=== PATIENT | female | born 1980 | race Caucasian/White ===

== ENCOUNTER 2025-01-31 16:54 | Emergency (ER) | payer BC, SELFPAY ==
--- NOTE | ~2025-01-31 | XR_ITS ---
EXAM: XR ankle LT min 3V DATE: 01/31/2025 17:23 HISTORY: GEN PAIN AND SWELLING, NKI . COMPARISON: None available. FINDINGS: Normal mineralization. No fracture or dislocation. No lytic or blastic lesion. Joint space s are maintained. Mild Achilles enthesopathy. Prominent os trigonum. Small ankle joint effusion No er osion or periosteal change. Soft tissue swelling about the ankle. IMPRESSION: No acute osseous finding in the left ankle. Prominent os trigonum which can be a source o f chronic posterior ankle pain in some patients. Ankle soft tissue swelling and small ankle joint eff usion. Reviewed, dictated and finalized at location K. IMPRESSION: No acute osseous finding in the left ankle. Prominent os trigonum w hich can be a source of chronic posterior ankle pain in some patients. Ankle so ft tissue swelling and small ankle joint effusion.
--- OUTSIDE RECORDS SUMMARY | 2025-01-31 16:57 | XMS_ITS | Clinical Summary ---
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 There are postsurgical changes of combined anterior and posterior instrumented fusion at L5-S1. The instrumentation is intact. Interval removal of posterior surgical drain. No lumbar compression fracture. There is mild multilevel degenerative disc disease and facet arthropathy at the nonfused levels most pronounced at L3-L4. Procedure Note Christine Chan MD - 12/09/2024 EXAMINATION: XR SPINE LUMBAR 2 OR 3 VIEWS HISTORY: Lumbar pain FINDINGS: 2 radiographs of the lumbar spine are submitted. Comparison is made to an examination dated 05/07/2025. 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 There are postsurgical changes of combined anterior and posterior instrumented fusion at L5-S1. The instrumentation is intact. Interval removal of posterior surgical drain. No lumbar compression fracture. There is mild multilevel degenerative disc disease and facet arthropathy at the nonfused levels most pronounced at L3-L4. IMPRESSION: Unchanged L5-S1 combined anterior and posterior instrumented fusion. Dictated by: Lake Ladd MD The radiology attending physician has personally reviewed this study, and had reviewed and/or edited this written report and agrees with it. Electronically signed by: Christine Chan MD us Valentino Gomez MD IMG XR PROCEDURES Final Re sult * Hepatitis C antibody Blood (04/05/2024 10:20 AM CDT) Hep C Ab Nonreactive Nonreactive Comment: Interpretive Data Nonreactive: Antibodies to HCV not detected. Does NOT exclude the possibility of recent exposure to HCV. Equivocal: Equivocal for HCV antibodies. Supplemental molecular testing will be automatically performed to determine infection status in accordance with current CDC screening recommendations. Reactive: Positive for HCV antibodies. This may represent current or past HCV infection. Supplemental molecular testing will be automatically performed to determine current infection status in accordance with current CDC screening recommendations. Interpretive data was last revised on 2019. Testing performed by: [facility], [address] [place] [address], [place]., [address] Blood 04/05/2024 10:2 0 AM CDT 04/05/2024 4:13 PM CDT us Jodi Comer NP LAB MICROBIOLOGY - GENE RAL ORDERABLES Final Result [place] [facility] of [facility] [place], [place] [id number] from Last 3 Months or Most Recently Relevant to Health Maintenance Insurance BLUE ACCESS OOS ANTHEM ACCESS ANTHEM ACCESS Member Subscriber Plan / Payer (Ef fective 2019-Present) Name:Rika Clay Relation to Subscriber:Spouse Name:Raffy Clay Date of :1961 (Home) Address: [address] [place] [id number] Payer ID:[id number] (NAIC) Type:BC ALLIANCE Address: [address] Advance Directives For more information, please contact: [phone] * Full Code (Latest Code Status on File) Date Activated Date Inactivated Comments 10/28/2024 6:53 AM 10/28/2024 8:33 PM Care Teams Green 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
--- OUTSIDE RECORDS SUMMARY | 2025-01-31 16:57 | XMS_ITS ---
Author Organization Unknown ENCOUNTERS Encounter Performer Location Date Diagnosis Diagnosis Status Outpatient DEBBIE PATEL [address] [address] [id number] Inpatient DEBBIE PATEL [address] [address] [id number] [facility] Emergency [address] [address] [id number] [facility] Emergency DIETER [address] [address] [id number] RTN *Note: Encounters from your own facility or health system may be excluded. Allergies, Adverse Reactions, Alerts Allergen Type Severity Identification Date Medications Name Date Quantity Days Supplied GPI Number
[2025-01-31 17:04] VITALS: BP 109/66; PULSE 106; RESP 16; TEMP 36.4; O2SAT 98
--- NOTE | 2025-01-31 17:16 | ED.LOWEXIN ---
HPI - Extremity Injury (Lower) General Chief Complaint: Extremity Injury, Lower Stated Complaint: Left Ankle Pain and Swelling Time Seen by Provider: 01/31/25 16:57 Source: patient and family (daughters ) Mode of arrival: ambulatory Limitations: no limitations History of Present Illness HPI Narrative: 44-year-old female presents to [facility] complaints of pain, swelling and warmth to lateral aspect of her left ankle since yesterday. Patient denies injury. Patient reports she has been taking leftover oxycodone from previous back surgery which is barely been helping with pain. Patient has been using crutches for ambulation. Patient reports that she previously fractured her right ankle years ago. Patient denies wounds, bruising, fever, body aches, chills, nausea vomiting or diarrhea. Relieving factors: rest Exacerbating factors: weight bearing and movement Related Data Home Medications ?Medication ?Instructions ?Recorded ?Confirmed ?Last Taken ?Type amitriptyline 25 mg tablet mg 01/31/25 Unknown History diazepam 5 mg tablet mg 01/31/25 Unknown History famotidine 40 mg tablet mg 01/31/25 Unknown History oxycodone 15 mg tablet mg 01/31/25 Unknown History Allergies Allergy/AdvReac Type Severity Reaction Status Date / Time acetaminophen Allergy Unknown Unknown Verified 01/31/25 16:58 PROPOXYPHENE NAPSYLATE Allergy Unknown Unknown Uncoded 01/31/25 16:58 Review of Systems Constitutional: Constitutional: Denies chills, Denies fatigue, Denies fever(s) and Denies weakness ENT: Denies dizziness, Denies nasal congestion and Denies sore throat Cardiovascular: Cardiovascular: Denies chest pain Respiratory: Respiratory: Denies cough, Denies dyspnea and Denies wheezing Gastrointestinal: Gastrointestinal: Denies diarrhea, Denies nausea and Denies vomiting Musculoskeletal: Musculoskeletal: Reports arthralgias and Reports joint swelling Comments: Pain, swelling and warmth to lateral aspect of left ankle Neurologic: Denies dizziness, Denies syncope, Denies headache(s) and Denies focal weakness PMFSH Comments At time of signature, I agree with nursing past medical, surgical, social and family history. There is no relevant family history pertinent to the presenting complaint. Exam Const: General: healthy appearing and no acute distress Nutritional Appearance: well nourished Orientation/consciousness: patient oriented x3 Limitations: no limitations Neck: Neck: normal visual inspection Resp: Effort & Inspection: normal respiratory effort and not labored Auscultation: clear to auscultation bilaterally, no crackles, no rales, no rhonchi and no wheezes Cardio: Rate: regular rate Rhythm: regular rhythm Heart sounds: no murmurs Skin: Other: Mild erythema and warmth noted to lateral aspect of left ankle Neuro: General: patient oriented x3 and moves all extremities Speech: normal speech Extrem: Other: Mild swelling, erythema and warmth noted to lateral aspect of left ankle. Pulses are within normal limits. Increased pain noted with range of motion of left foot. There are no wounds noted Psych: Affect: normal affect Attitude: cooperative Course Course Level of Care: Express Care Visit Vital Signs Vital signs: Vital Signs Temperature 36.4 C L 01/31/25 17:04 Pulse Rate 106 H 01/31/25 17:04 Respiratory Rate 16 01/31/25 17:04 Blood Pressure 109/66 01/31/25 17:04 Pulse Oximetry 98 01/31/25 17:04 Oxygen Delivery Room Air 01/31/25 17:04 Temperature 36.4 C L 01/31/25 17:04 Pulse Rate 106 H 01/31/25 17:04 Respiratory Rate 16 01/31/25 17:04 Blood Pressure 109/66 01/31/25 17:04 Pulse Oximetry 98 01/31/25 17:04 Oxygen Delivery Room Air 01/31/25 17:04 MDM - Extremity Injury (Lower) MDM Narrative Medical decision making narrative: Discussed x-ray results with patient. Discussed differential diagnosis of gout versus cellulitis versus strain. Patient agrees to alternate Motrin and Tylenol as needed. Instructed patient to only take oxycodone that she has at home for very severe pain. Will place patient on prophylactic antibiotic due to possible cellulitis. Instructed patient to follow-up with primary care provider on Sunday. Educated patient to proceed to the emergency room symptoms worsen Differential Diagnosis Differential diagnosis: Likely other (Gout, cellulitis, strain) Imaging Data Radiologist's impression: Ordering Physician: Kalpana Tadeo APRN Date of Service: 01/31/25 Procedure(s): XR ankle LT min 3V Accession Number(s): [id number] cc: Kalpana Tadeo APRN; UNKNOWN,DOCTOR~ EXAM: XR ankle LT min 3V DATE: 01/31/2025 17:23 HISTORY: GEN PAIN AND SWELLING, NKI . COMPARISON: None available. FINDINGS: Normal mineralization. No fracture or dislocation. No lytic or blastic lesion. Joint spaces are maintained. Mild Achilles enthesopathy. Prominent os trigonum. Small ankle joint effusion No erosion or periosteal change. Soft tissue swelling about the ankle. IMPRESSION: No acute osseous finding in the left ankle. Prominent os trigonum which can be a source of chronic posterior ankle pain in some patients. Ankle soft tissue swelling and small ankle joint effusion. Reviewed, dictated and finalized at location K. Please be advised this is a medical document. It is intended for [id number] communication. It is written in medical language and may contain unfamiliar abbreviations or verbiage. Medical documents are intended to carry relevant information, facts as evident, and the clinical opinion of the practitioner at the time of the encounter. This report may have been done utilizing a voice recognition system. Attempts have been made to correct errors. However, there may be uncorrected grammatical, spelling, and recognition errors present. The file time of this note does not necessarily represent the time of service. Dictated By: Cecil Metcalf MD 01/31/25 1731 Signed By: <Electronically signed by Cecil Metcalf MD in OV> 01/31/25 1732 Critical Care Time Critical Care Time Critical Care Time: No Discharge Plan Discharge Clinical Impression: Acute left ankle pain Patient Disposition: Home Condition: Stable Instructions: Antibiotic Form, Swollen Joint (ED) Additional Instructions: Elevate left ankle apply cool compresses to area of pain Alternate Motrin and Tylenol as needed for pain Only take oxycodone for severe pain Wear Constantino wrap to left ankle is needed Follow-up with primary care provider on Sunday to re-evaluate symptoms Monitor symptoms very closely and proceed to the emergency room if symptoms worsen Patient Language: Syrian Prescriptions: New cephalexin 500 mg capsule 500 mg PO Q8H 10 Days Qty: 30 0RF No Action famotidine 40 mg tablet oxycodone 15 mg tablet amitriptyline 25 mg tablet diazepam 5 mg tablet Follow-up/Referrals: UNKNOWN,DOCTOR [Primary Care Provider] - Stand Alone Forms: Work/School Release IP Time of Disposition: 17:47
== END 2025-01-31 17:51 | disposition home or self-care (01) ==
PROVIDERS: Emergency Provider Nurse Practitioner Family
DX: M25.572 Pain in left ankle and joints of left foot (principal)
CPT/HCPCS: 73610; 99203; G0463